=== PATIENT | female | born 1985 | race Hispanic/Latino ===

== ENCOUNTER 2021-02-21 00:46 | Emergency (ER) | payer SELFPAY ==
[2021-02-21] MEDS ORDERED: Morphine 4 MG/ML VIAL ONE (01:00)
[2021-02-21 01:36] LABS: #Eosinphils 0.6 10x3/uL (0.0-0.5); #Monocytes 0.6 10x3/uL (0.0-1.1); #Neutrophils 9.8 10x3/uL (1.5-8.4); %Basophils 0.3 % (0.0-2.0); %Eosinophils 4.3 % (0.0-6.0); %Lymphocytes 22.4 % (18.0-47.0); %Monocytes 4.1 % (0.0-10.0); %Neutrophils 68.5 % (40.0-75.0); Hemoglobin 11.2 g/dL (12.0-15.5); Mean Corpuscular HGB CONC 34.1 g/dL (32.0-36.0); Mean Corpuscular Hemoglobin 30.5 pg (27.0-33.0); Mean Corpuscular Volume 89.4 fl (81.6-98.3); Mean Platelet Volume 11.3 fl (7.4-10.4); Platelet Count 215 10x3/uL (150-450); Red Blood Cell (RBC) Count 3.67 10x6/uL (3.90-5.03); White Blood Cell (WBC) Count 14.3 10x3/uL (3.5-10.5)
[2021-02-21] MEDS ORDERED: Fentanyl 100 MCG/2 ML VIAL ONE ×2 (03:17→05:25)
[2021-02-21] MEDS ORDERED: PROPOFOL 20 ML ONE (03:17)
[2021-02-21] MEDS ORDERED: Ondansetron PF 4 MG/2 ML Vial ONE (03:18)
[2021-02-21] MEDS ORDERED: Dexamethasone 20 MG/5 ML VIAL ONE (03:18)
[2021-02-21] MEDS ORDERED: Midazolam HCl 2 mg/2 ml Vial ONE (03:18)
[2021-02-21] MEDS ORDERED: Rocuronium Bromide 10 MG/ML (10ML VIAL) ONE (03:18)
[2021-02-21] MEDS ORDERED: Lidocaine 1% PF 5 ML VIAL ONE (03:18)
[2021-02-21] MEDS ORDERED: Succinylcholine 200 MG/10 ml SYRINGE FS ONE (03:22)
[2021-02-21] MEDS ORDERED: SUGAMMADEX SODIUM 500 MG/5 ML VIAL ONE (03:23)
[2021-02-21] MEDS ORDERED: EPINEPHrine 1 MG/ML AMP ONE (03:24)
[2021-02-21] MEDS ORDERED: Bupivacaine PF 0.5% 30 ML VIAL ONE (03:25)
[2021-02-21 04:46] LABS: SARS-CoV-2 NAA Rapid Test Not Detected (NotDetected)
[2021-02-21] MEDS ORDERED: Ketorolac Tromethamine 30 MG/ML VIAL ONE (05:25)
[2021-02-21] MEDS ORDERED: HYDROmorphone 0.5 MG/0.5 ML SYRINGE ONE (05:53)
== END 2021-02-21 03:57 | disposition admitted as inpatient to this hospital (09) ==
LOC: CSHERS 00:46
PROC: 10T24ZZ Resection of Products of Conception, Ectopic, Percutaneous Endoscopic Approach (ICD-10-PCS; principal; 2021-02-21)
PROC: 0UT54ZZ Resection of Right Fallopian Tube, Percutaneous Endoscopic Approach (ICD-10-PCS; 2021-02-21)
DX: O00.101 Right tubal pregnancy without intrauterine pregnancy (principal); O08.1 Delayed or excessive hemorrhage following ectopic and molar pregnancy; K66.1 Hemoperitoneum; Z98.51 Tubal ligation status; Z20.822 Contact with and (suspected) exposure to COVID-19
CPT/HCPCS: 36415; 76856; 85025; 86850; 86900; 86901; 88302; 96374; J0171; J1100; J1170; J1885; J2250; J2270; J2405; J2704; J3010; S0020; U0002